=== PATIENT | female | born 1980 | race Caucasian/White ===

== ENCOUNTER 2016-11-23 12:30 | Emergency (ER) | payer OTHER ==
[~2016-11-23] VITALS: Ht 172.7 cm; Wt 63.6 kg
[2016-11-23 12:41] VITALS: TEMP 36.9; Ht 172.7 cm; Wt 63.6 kg
[2016-11-23] MEDS ORDERED: IBUP-1450 PO (12:57)
--- NOTE | 2016-11-23 13:12 | EMERGENCY ROOM VISIT NOTE ---
ED Visit Note First contact with patient: 12:44 CHIEF COMPLAINT: Rabies prophylaxis HISTORY OF PRESENT ILLNESS: This 36-year-old female patient presents to the emergency department for possible rabies exposure. There is concern for rabies exposure. 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 She states that she was taking care of a horse. She states that she helped to euthanize the horse and remove the head to be sent for testing. She states she was wearing gloves but not a mask. She states she does have multiple abrasions to her hands. The test came back positive for rabies. The patient had the full rabies vaccination series in 2004. She had titers four years ago which were good. REVIEW OF SYSTEMS: A 6 system review of systems was completed with positives and pertinent negatives listed in the HPI. ALLERGIES: Aspirin, guaifenesin MEDICATIONS: See nursing notes PMH: Asthma. SOCIAL HISTORY: The patient is employed. She smokes occasionally.. PHYSICAL EXAM: Vital Signs: Reviewed Nurse's notes, vital signs stable. GENERAL : This is a 36-year-old female, in no acute distress, well-developed, well- nourished. HEAD: Atraumatic, without temporal or scalp tenderness. EYES: PERRLA, EOMI, no discharge or injection. SKIN: Without obvious open wound. Capillary refill less than 2 seconds. NEUROLOGICAL: Alert and oriented to person place and time. Normal sensation to light and sharp touch. MUSCULOSKELETAL: Motor functions grossly intact of the arms and legs. Full range of motion. EMERGENCY DEPARTMENT COURSE: I examined the patient. The patient has already received the full vaccination series. She will receive Imovax today, day 0, and on day 3. The patient was discharged home in stable condition. DIAGNOSIS: Rabies prophylaxis DISCHARGE INSTRUCTIONS: Today is day 0. Return to the ER on day 3 for subsequent vaccinations. Return sooner or follow up with your family doctor for signs of infection (increased redness, discharge, fever) or for complications with the vaccine series. Current/Historical Medications Scheduled PRN Ibuprofen (Motrin), 600 MG PO Q6H PRN for Pain Allergies Coded Allergies: Aspirin (Unverified Allergy, Unknown, vomit, blood in vomit,, 11/23/16) Guaifenesin (Unverified Allergy, Unknown, hives, itching , 11/23/16) Vital Signs Date Time Temp Pulse Resp B/P Pulse Ox O2 Delivery O2 Flow Rate FiO2 11/23/16 13:48 75 16 111/74 97 11/23/16 12:41 36.9 85 17 116/72 96 Room Air Laboratory Results Test 11/23/16 13:40 Medications Administered Medications (Trade) Dose Ordered Sig/Akil Route Start Time Stop Time Status Last Admin Dose Admin Rabies Vaccine Human Diploid Cell (Imovax Rabies) 2.5 interunit ONCE ONCE IM. 11/23/16 13:15 11/23/16 13:16 DC 11/23/16 13:13 2.5 INTERUNIT Departure Information Impression Primary Impression: Rabies, need for prophylactic vaccination against Dispostion Home / Self-Care Condition GOOD Referrals No Doctor, Assigned (PCP) Patient Instructions My [facility] Additional Instructions Today is day 0. Return to the ER on day 3 for subsequent vaccinations. Return sooner or follow up with your family doctor for signs of infection ( increased redness, discharge, fever) or for complications with the vaccine series. The rabies titer is a send out laboratory study. You may contact the emergency department [phone] to check the results.
[2016-11-23] MEDS ORDERED: RABIES VACCINE (IMOVAX) HUMAN DIPL CELL 2.5 INTER.UNIT/ML SYR IM. ONE (13:15)
[2016-11-23 13:48] VITALS: BP 111/74; PULSE 75; O2SAT 97
[2016-12-26 14:20] LABS: RABIES END POINT TITER 2.3 IU/mL
== END 2016-11-23 13:57 | disposition home or self-care (01) ==
LOC: C.EDB 12:33 → C.EDD 13:57
DX: Z29.14 Encounter for prophylactic rabies immune globulin (principal); Z20.3 Contact with and (suspected) exposure to rabies; J45.909 Unspecified asthma, uncomplicated

== ENCOUNTER 2016-11-26 13:48 | Emergency (ER) | payer OTHER ==
[~2016-11-26] VITALS: Ht 172.7 cm; Wt 64.2 kg
[~2016-11-26 13:48] MED LIST: IBUP-1450 PO
[2016-11-26 13:59] VITALS: TEMP 37; Ht 172.7 cm; Wt 64.2 kg
[2016-11-26] MEDS ORDERED: RABIES VACCINE (IMOVAX) HUMAN DIPL CELL 2.5 INTER.UNIT/ML SYR IM. ONE (14:15)
--- NOTE | 2016-11-26 14:24 | EMERGENCY ROOM VISIT NOTE ---
History First contact with patient: 14:04 Chief Complaint: RABIES VACCINE REPEAT VISIT Stated Complaint: SECOND RABIES VACCINE History of Present Illness The patient is a 36 year old female who presents to the Emergency Room for her second and final Imovax injection. The patient was exposed to a rabid horse. She has already had her preexposure rabies prophylaxis series with positive titers approximately 4 years ago. She denies any adverse reactions to her previous injection. Review of Systems 6 system review was performed and was negative except for pertinent positives and negatives as indicated in history of present illness Past Medical/Surgical History Medical Problems: (1) Asthma Surgical Problems: (1) No history of previous surgery Family History Unremarkable Social History Smoking Status: Former Smoker Alcohol Use: occasionally Marital Status: Occupation Status: employed Current/Historical Medications Scheduled PRN Ibuprofen (Motrin), 600 MG PO Q6H PRN for Pain Allergies Coded Allergies: Aspirin (Unverified Allergy, Unknown, vomit, blood in vomit,, 11/26/16) Guaifenesin (Unverified Allergy, Unknown, hives, itching , 11/26/16) Physical Exam Vital Signs Date Time Temp Pulse Resp B/P Pulse Ox O2 Delivery O2 Flow Rate FiO2 11/26/16 13:59 37.0 72 18 109/71 97 Room Air Physical Exam CONSTITUTIONAL: Healthy and well nourished. Alert and oriented X 3 with positive affect. HEENT: Normocephalic, atraumatic. Pupils equal, round and reactive. INTEGUMENTARY: No rash or other significant dermatologic conditions noted. NEUROLOGIC: No focal neurologic deficits noted. Medical Decision & Procedures ED Course Patient history and physical exam were performed. I did review her last ER documentation. The patient was administered Imovax IM without adverse reaction. The patient was instructed to contact the [facility] as needed for any further questions regarding this exposure. Return to the emergency department for any adverse reaction to her immunization. Medical Decision Impression Primary Impression: Need for prophylactic vaccination against rabies Departure Information Dispostion Home / Self-Care Forms HOME CARE DOCUMENTATION FORM, IMPORTANT VISIT INFORMATION Patient Instructions My [facility] Additional Instructions Contact the Department of Health as needed for any further questions or concerns. Return to the emergency department for any adverse reaction to your injection.
[2016-11-26 14:29] VITALS: BP 119/69; PULSE 79; O2SAT 99
== END 2016-11-26 14:30 | disposition home or self-care (01) ==
LOC: C.EDB 13:49 → C.EDD 14:30
DX: Z29.14 Encounter for prophylactic rabies immune globulin (principal); Z20.3 Contact with and (suspected) exposure to rabies; J45.909 Unspecified asthma, uncomplicated; Z87.891 Personal history of nicotine dependence